=== PATIENT | male | born 1935 | race Caucasian/White ===

== ENCOUNTER 2016-09-14 21:05 | Inpatient (IN) | payer MEDICARE, BC ==
[2016-09-14 21:30] LABS: HEMATOCRIT 38.7 % (42.0-52.0); HEMOGLOBIN 12.3 gm/dl (14.0-18.0); MEAN CELL VOLUME 90.8 fl (81-97); MEAN CORPUSCULAR HGB CONC 31.8 g/dl (32-36); MEAN PLATELET VOLUME 10.5 fl (7.4-10.4); PLATELET COUNT 216 K/uL (130-400); RED BLOOD COUNT 4.26 M/uL (4.40-5.70); RED CELL DISTRIBUTION WIDTH 14.4 % (11.5-14.5); WHITE BLOOD COUNT W/O DIFF 12.8 K/uL (4.2-12.2)
[2016-09-14 21:31] LABS: MEAN CORPUSCULAR HEMOGLOBIN 28.8 pg (27-33)
[2016-09-14 21:42] LABS: ALB/GLOB RATIO 1.3 (1.1-1.8); ALBUMIN 3.4 gm/dL (3.5-5.0); BILIRUBIN,TOTAL 0.72 mg/dL (0.2-1.3); CREATININE 1.7 mg/dL (0.66-1.25); TOTAL PROTEIN 6.1 gm/dL (6.3-8.2)
[2016-09-14 21:53] LABS: CKMB 1.5 ug/L (0-6); TROPONIN I 0.036 ng/mL (0.00-0.034)
[2016-09-14] MEDS ORDERED: ASPIRIN 81 MG CHEWABLE TABLET PO ONE (21:53)
[2016-09-14] MEDS ORDERED: ACETAMINOPHEN 325 MG TAB PO ONE (22:12)
[2016-09-14 22:20] LABS: URINE APPEARANCE CLEAR; URINE BILIRUBIN NEGATIVE (NEGATIVE); URINE BLOOD NEGATIVE (NEGATIVE); URINE COLOR YELLOW; URINE GLUCOSE (UA) NEGATIVE (NEGATIVE); URINE KETONE TRACE (NEGATIVE); URINE LEUKOCYTE ESTERASE NEGATIVE (NEGATIVE); URINE NITRITE POSITIVE (NEGATIVE); URINE PROTEIN NEGATIVE (NEGATIVE); URINE UROBILINOGEN 0.2 E.U./dL (0.20 - 1.00)
[2016-09-14 22:26] LABS: URINE EPITHELIAL CELLS 0 - 2 (FEW); URINE RBC 0 - 2 (NONE SEEN)
[2016-09-14 22:27] LABS: URINE BACTERIA 3+
[2016-09-14] MEDS ORDERED: CEFTRIAXONE 1 GRAM VIAL IM ONE (23:18)
[2016-09-14] MEDS ORDERED: AZITHROMYCIN 500 MG TABLET PO ONE (23:23)
--- NOTE | 2016-09-14 23:24 | Emergency Department Record ---
History of Present Illness - General Chief Complaint: Chest Pain Stated Complaint: CHEST PAIN Time Seen by Provider: 09/14/16 21:42 Source: Patient, Family, EMS Mode of Arrival: EMS Limitations: No limitations - History of Present Illness Initial Comments: pt started having chest pain at 1840 and told his son he was having a heart attack. it got better then got worse again at 2019 and he was brought here. he currently denies any chest pain. he has a cough. MD Complaint: Chest pain Onset/Timin -: Hour(s) Onset: During rest Pain Location: Substernal Consistency: Now resolved Improves With: Nothing Worsens With: Nothing Anginal Symptoms: Dyspnea Other Symptoms: Cough, Fever Treatments Prior to Arrival: None - Related Data Home Medications Medication Instructions Recorded Confirmed Last Taken Albuterol Sulfate [Proair Hfa] 1 - 2 puff IH .EVERY 4-6 HOURS PRN 11/25/1409/1410/11/15 Amlodipine Besylate [Norvasc] 5 mg PO DAILY 11/25/14 09/14/16 10/12/15 Aspirin [Aspirin EC] 81 mg PO DAILY 11/25/14 09/14/16 10/12/15 Brimonidine Tartrate [Alphagan P] 5 ml OP BID 11/25/14 09/14/16 10/12/15 Cilostazol [Pletal] 50 mg PO BID 11/25/14 09/14/16 10/12/15 Docusate Sodium [Colace] 100 mg PO BID 11/25/14 09/14/16 10/12/15 Dorzolamide HCl/Timolol Maleat 5 ml OP BID 11/25/14 09/14/16 10/12/15 [Cosopt Eye Drops] Doxazosin Mesylate [Cardura] 4 mg PO DAILY 11/25/14 09/14/16 10/11/15 Ezetimibe [Zetia] 10 mg PO DAILY 11/25/14 09/14/16 10/12/15 Latanoprost [Xalatan] 1 drop OP QHS 11/25/14 09/14/16 10/11/15 Mirtazapine 15 mg PO QHS 11/25/14 09/14/16 10/11/15 Furosemide [Lasix] 20 mg PO QAM 03/04/15 09/14/16 10/12/15 Metoprolol Tartrate [Lopressor] 12.5 mg PO Q12H 06/30/15 09/14/16 10/12/15 Temazepam [Restoril] 7.5 mg PO QHS 06/30/15 09/14/16 10/11/15 Acetaminophen [Tylenol 500Mg Tab] 500 mg PO QHS 10/12/15 09/14/16 10/11/15 Tramadol HCl 50 mg PO QHS 10/12/15 09/14/16 10/11/15 Pantoprazole Sodium [Protonix] 40 mg PO DAILY 09/13/16 09/14/16 Unknown Polyethylene Glycol 3350 [Miralax] 17 gm PO DAILY 09/13/16 09/14/16 Unknown Tramadol HCl [Tramadol HCl] 50 mg PO QID PRN 09/13/16 09/14/16 Unknown Allergies Allergy/AdvReac Type Severity Reaction Status Date / Time acetazolamide Allergy Severe BEHAVIORAL Verified 09/14/16 23:20 [From Diamox Sequels] CHANGES atenolol [From Tenormin] Allergy Severe BEHAVIORAL Verified 09/14/16 23:20 CHANGES hydrocodone bitartrate Allergy Severe BEHAVIORAL Verified 09/14/16 23:20 CHANGES quetiapine fumarate Allergy Severe BEHAVIORAL Verified 09/14/16 23:20 [From Seroquel] CHANGES fluticasone propionate Allergy Intermediate HYPERSENSIT Verified 09/14/16 23:20 [From Flonase] IVITY rofecoxib Allergy Intermediate HYPERSENSIT Verified 09/14/16 23:20 IVITY Travel Screening - Travel/Exposure Within Last 30 Days Have you traveled within the last 30 days?: No Review of Systems Reviewed: No additional complaints except as noted below Constitutional: Reports: As per HPI. Denies: Chills, Fever, Malaise, Night sweats, Weakness, Weight change Eyes: Reports: As per HPI. Denies: Eye discharge, Eye pain, Photophobia, Vision change ENT: Reports: As per HPI. Denies: Congestion, Dental pain, Ear pain, Epistaxis , Hearing loss, Throat pain Respiratory: Reports: As per HPI. Denies: Cough, Dyspnea, Hemoptysis, Stridor, Wheezes Cardiovascular: Reports: As per HPI. Denies: Arrhythmia, Chest pain, Dyspnea on exertion, Edema, Murmurs, Orthopnea, Palpitations, Paroxysmal nocturnal dyspnea, Rheumatic Fever, Syncope Endocrine: Reports: As per HPI. Denies: Fatigue, Heat or cold intolerance, Polydipsia, Polyuria Gastrointestinal: Reports: As per HPI. Denies: Abdominal pain, Constipation, Diarrhea, Hematemesis, Hematochezia, Melena, Nausea, Vomiting Genitourinary: Reports: As per HPI. Denies: Dysuria, Frequency, Hematuria, Incontinence, Retention, Testicular pain, Testicular mass, Urgency Musculoskeletal: Reports: As per HPI. Denies: Arthralgia, Back pain, Gout, Joint swelling, Myalgia, Neck pain Skin: Reports: As per HPI. Denies: Bruising, Change in color, Change in hair/ nails, Lesions, Pruritus, Rash Neurological: Reports: As per HPI. Denies: Abnormal gait, Confusion, Headache, Numbness, Paresthesias, Seizure, Tingling, Tremors, Vertigo, Weakness Psychiatric: Reports: As per HPI. Denies: Anxiety, Auditory hallucinations, Depression, Homicidal thoughts, Suicidal thoughts, Visual hallucinations Hematological/Lymphatic: Reports: As per HPI. Denies: Anemia, Blood Clots, Easy bleeding, Easy bruising, Swollen glands Past Medical History - SOCIAL HISTORY Smoking Status: Never smoker Alcohol Use: None Drug Use: None - RESPIRATORY Hx Respiratory Disorders: No Comment:: wheezes - CARDIOVASCULAR Hx Cardio Disorders: Yes Hx Abnormal EKG: Yes Hx Cardiac Cath: Yes Hx Heart Attack: Yes Hx Hypertension: Yes - NEURO Hx Neuro Disorders: No - GI Hx GI Disorders: Yes Hx Diverticulitis: Yes Hx Reflux: Yes Comment:: colitis - Hx Genitourinary Disorders: Yes Hx Prostate Problems: Yes Comment:: prostate CA - ENDOCRINE Hx Endocrine Disorders: No Hx Diabetes: No Hx Thyroid Disease: No - MUSCULOSKELETAL Hx Musculoskeletal Disorders: Yes Hx Arthritis: Yes Comment:: mult back surg - PSYCH Hx Psych Problems: No - HEMATOLOGY/ONCOLOGY Hx Hematology/Oncology Disorders: Yes Hx Cancer: Yes (prostate) Hx Chemotherapy: No Hx Radiation Therapy: No Family Medical History Any Significant Family History?: Yes Hx Cancer: Father Hx Heart Disease: Mother Hx Stroke: Grandparents Physical Exam - General General Appearance: Alert, Oriented x3, Cooperative, Mild distress - Head Head exam: Normal inspection - Eye Eye exam: Normal appearance, PERRL, EOMI Pupils: Normal accommodation - ENT ENT exam: Normal exam, Mucous membranes moist, Normal external ear exam, Normal orophraynx Ear exam: Normal external inspection. negative: External canal tenderness Nasal Exam: Normal inspection. negative: Discharge, Sinus tenderness Mouth exam: Normal external inspection, Tongue normal Teeth exam: Normal inspection. negative: Dental caries Throat exam: Normal inspection. negative: Tonsillar erythema, Tonsillar exudate - Neck Neck exam: Normal inspection, Full ROM. negative: Tenderness - Respiratory Respiratory exam: Decreased breath sounds, Rales. negative: Respiratory distress - Cardiovascular Cardiovascular Exam: Regular rate, Normal rhythm, Systolic murmur - GI/Abdominal GI/Abdominal exam: Soft, Normal bowel sounds. negative: Tenderness - Rectal Rectal exam: Deferred - exam: Deferred - Extremities Extremities exam: Normal inspection, Full ROM, Normal capillary refill. negative: Tenderness - Back Back exam: Reports: Normal inspection, Full ROM. 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 ADM/Transfer/OP Study) - Data Complexity MDM Data: Labs Ordered and/or Reviewed, X-Ray Ordered and/or Reviewed, EKG Ordered and/or Reviewed - Lab Data Result diagrams: 09/14/16 21:20 09/14/16 21:20 Lab Results 09/14/16 09/14/16 09/14/16 Range/Units 21:20 21:20 21:20 WBC 12.8 H (4.2-12.2) K/uL Corrected WBC RBC 4.26 L (4.40-5.70) M/uL Hgb 12.3 L (14.0-18.0) gm/dl Hct 38.7 L (42.0-52.0) % MCV 90.8 (81-97) fl MCH 28.8 (27-33) pg MCHC 31.8 L (32-36) g/dl RDW 14.4 (11.5-14.5) % Plt Count 216 (130-400) K/uL MPV 10.5 H (7.4-10.4) fl Gran % Neutrophils % 66.0 (47-80) % Band Neutrophils % 0.0 (0-5) % Lymphocytes % 12.0 L (16-45) % Monocytes % 20.0 H (0-9) % Eosinophils % 2.0 (0-6) % Basophils % 0.0 (0-6) % Sodium 137 (136-145) mmol/L Potassium 4.1 (3.5-5.1) mmol/L Chloride 98 (98-107) mmol/L Carbon Dioxide 30.0 (22-30) mmol/L Anion Gap 9.0 (7-16) BUN 27 H (9-20) mg/dL Creatinine 1.7 H (0.66-1.25) mg/dL Estimated GFR 41 ml/min Random Glucose 112 H (70-110) mg/dL Calcium 8.8 (8.5-10.1) mg/dL Total Bilirubin 0.72 (0.2-1.3) mg/dL AST 25 (17-59) U/L ALT 44 (21-72) U/L Alkaline Phosphatase 78 (38-126) U/L Creatine Kinase 61 (55-170) U/L CK-MB (CK-2) 1.5 (0-6) ug/L Troponin I 0.036 H (0.00-0.034) ng/mL NT-Pro-B Natriuret Pep (<450) pg/mL Total Protein 6.1 L (6.3-8.2) gm/dL Albumin 3.4 L (3.5-5.0) gm/dL Globulin 2.7 (1.4-4.8) gm/dL Albumin/Globulin Ratio 1.3 (1.1-1.8) Urine Color Urine Appearance Urine pH (5.0-8.0) Ur Specific [place] (1.002-1.030) Urine Protein (NEGATIVE) Urine Glucose (UA) (NEGATIVE) Urine Ketones (NEGATIVE) Urine Blood (NEGATIVE) Urine Nitrite (NEGATIVE) Urine Bilirubin (NEGATIVE) Urine Urobilinogen (0.20 - 1.00) E.U./dL Ur Leukocyte Esterase (NEGATIVE) Urine RBC (NONE SEEN) Urine WBC (0-2/hpf) Ur Epithelial Cells (FEW) Urine Bacteria 09/14/16 09/14/16 09/14/16 Range/Units 21:20 21:53 22:17 WBC Cancelled (4.2-12.2) K/uL Corrected WBC Cancelled RBC Cancelled (4.40-5.70) M/uL Hgb Cancelled (14.0-18.0) gm/dl Hct Cancelled (42.0-52.0) % MCV Cancelled (81-97) fl MCH Cancelled (27-33) pg MCHC Cancelled (32-36) g/dl RDW Cancelled (11.5-14.5) % Plt Count Cancelled (130-400) K/uL MPV Cancelled (7.4-10.4) fl Gran % Cancelled Neutrophils % (47-80) % Band Neutrophils % (0-5) % Lymphocytes % Cancelled (16-45) % Monocytes % Cancelled (0-9) % Eosinophils % Cancelled (0-6) % Basophils % Cancelled (0-6) % Sodium Cancelled (136-145) mmol/L Potassium Cancelled (3.5-5.1) mmol/L Chloride Cancelled (98-107) mmol/L Carbon Dioxide Cancelled (22-30) mmol/L Anion Gap Cancelled (7-16) BUN Cancelled (9-20) mg/dL Creatinine Cancelled (0.66-1.25) mg/dL Estimated GFR Cancelled ml/min Random Glucose Cancelled (70-110) mg/dL Calcium Cancelled (8.5-10.1) mg/dL Total Bilirubin (0.2-1.3) mg/dL AST (17-59) U/L ALT (21-72) U/L Alkaline Phosphatase (38-126) U/L Creatine Kinase (55-170) U/L CK-MB (CK-2) (0-6) ug/L Troponin I (0.00-0.034) ng/mL NT-Pro-B Natriuret Pep 1930.00 H (<450) pg/mL Total Protein (6.3-8.2) gm/dL Albumin (3.5-5.0) gm/dL Globulin (1.4-4.8) gm/dL Albumin/Globulin Ratio (1.1-1.8) Urine Color Yellow Urine Appearance Clear Urine pH 5.5 (5.0-8.0) Ur Specific [place] 1.020 (1.002-1.030) Urine Protein Negative (NEGATIVE) Urine Glucose (UA) Negative (NEGATIVE) Urine Ketones Trace H (NEGATIVE) Urine Blood Negative (NEGATIVE) Urine Nitrite Positive H (NEGATIVE) Urine Bilirubin Negative (NEGATIVE) Urine Urobilinogen 0.2 (0.20 - 1.00) E.U./dL Ur Leukocyte Esterase Negative (NEGATIVE) Urine RBC 0 - 2 (NONE SEEN) Urine WBC 10 - 15 (0-2/hpf) Ur Epithelial Cells 0 - 2 (FEW) Urine Bacteria 3+ - EKG Data -: EKG Interpreted by Ms EKG: Abnormal EKG (pvcs) - Radiology Data Radiology results: Report reviewed, Image reviewed Disposition Disposition: Admit Clinical Impression: Pneumonia Qualifiers: Pneumonia type: due to unspecified organism Laterality: right Lung location: lower lobe of lung Qualified Code(s): J18.1 - Lobar pneumonia, unspecified organism UTI (urinary tract infection) Qualifiers: Urinary tract infection type: acute cystitis Hematuria presence: without hematuria Qualified Code(s): N30.00 - Acute cystitis without hematuria Chest pain Qualifiers: Chest pain type: unspecified Qualified Code(s): R07.9 - Chest pain, unspecified Decision to Admit: Admit from ER Decision to Admit Date: 09/14/16 Decision to Admit Time: 23:38 Forms: Patient Portal Access
[2016-09-14] MEDS ORDERED: CEFTRIAXONE SODIUM 1 GM in 0.9 % SODIUM CHLORIDE 100ML 100 ML IVPB ONE (23:30)
[2016-09-15] MEDS ORDERED: ALBUTEROL HFA 8 GM INHALER INH PRN (00:30)
[2016-09-15] MEDS ORDERED: TRAMADOL HCL 50 MG TABLET PO PRN ×2 (00:30→00:36)
[2016-09-15] MEDS ORDERED: NITROGLYCERIN 0.4MG SL TABLET #25 BTL SL PRN (00:30)
[2016-09-15] MEDS ORDERED: ACETAMINOPHEN 500 MG TABLET PO PRN (00:30)
[2016-09-15] MEDS ORDERED: CEFTRIAXONE SODIUM 1 GM in 0.9 % SODIUM CHLORIDE 100ML 100 ML IVPB SCH (00:30)
[2016-09-15] MEDS ORDERED: METOPROLOL TART 25 MG TABLET PO SCH (00:30)
[2016-09-15 06:58] LABS: CREATININE 1.7 mg/dL (0.66-1.25)
[2016-09-15] MEDS ORDERED: PANTOPRAZOLE SODIUM 40 MG TABLET PO SCH ×2 (07:00→10:00)
[2016-09-15 07:10] LABS: CKMB 1.4 ug/L (0-6); TROPONIN I 0.057 ng/mL (0.00-0.034)
--- NOTE | 2016-09-15 07:27 | RADIOLOGY REPORT ---
EXAM: CHEST, TWO VIEWS HISTORY: DIFFICULTY IN BREATHING. TECHNIQUE: Frontal and lateral views of the chest were performed. FINDINGS: The heart size is normal. There is an infiltrate in the right lower lobe. No pleural effusion. The osseous structures are normal. IMPRESSION: RIGHT LOWER LOBE INFILTRATE. JOB NUMBER: [id number] MTDD
[2016-09-15] MEDS: METOPROLOL TART 25 MG TABLET PO SCH ×2 (10:46→20:30)
[2016-09-15] MEDS: DOXAZOSIN MESYLATE 2 MG TABLET PO SCH (10:47)
[2016-09-15] MEDS: DOCUSATE SODIUM 100 MG CAPSULE PO SCH ×3 (10:47→21:04)
[2016-09-15] MEDS: ASPIRIN 325 MG TAB ENTERIC-COATED PO SCH (10:48)
[2016-09-15] MEDS: FUROSEMIDE 20 MG TABLET PO SCH (10:48)
[2016-09-15] MEDS: AMLODIPINE BESYLATE 5MG TAB PO SCH (10:49)
[2016-09-15] MEDS: POLYETHYLENE GLY 17 GM PACKET PO SCH (10:49)
[2016-09-15] MEDS: CILOSTAZOL 50 MG PO SCH ×3 (10:50→21:05)
[2016-09-15] MEDS: BRIMONIDINE OPTH SCH ×3 (10:50→21:05)
[2016-09-15] MEDS: CEFTRIAXONE SODIUM 1 GM in 0.9 % SODIUM CHLORIDE 100ML 100 ML IVPB SCH ×2 (10:51→21:48)
[2016-09-15] MEDS: TIMOLOL EYE OPTH SCH ×3 (10:51→21:05)
[2016-09-15] MEDS: EZETIMIBE 10 MG TABLET PO SCH (10:51)
[2016-09-15] MEDS: DORZOLAMIDE OPTH SCH ×3 (10:51→21:05)
[2016-09-15] MEDS: AZITHROMYCIN 500 MG TABLET PO SCH (10:52)
[2016-09-15] MEDS ORDERED: 0.9 % SODIUM CHLORIDE 1000ML 1,000 ML IV ONE (13:29)
[2016-09-15 14:24] LABS: CKMB 1.1 ug/L (0-6)
[2016-09-15 14:27] LABS: TROPONIN I 0.038 ng/mL (0.00-0.034)
[2016-09-15] MEDS: ENOXAPARIN 30 MG/0.3 ML SYR SQ SCH (15:15)
--- NOTE | 2016-09-15 15:22 | History and Physical Report ---
DATE OF ADMISSION: 09/15/16 at 12:45 p.m. CHIEF COMPLAINT: COUGH, CONGESTION, WHEEZING, AND CHEST PAIN AT [facility]. HISTORY OF PRESENT ILLNESS: This 81-year-old male who has been at [facility] for five years with dementia starting about that time stated he had chest pain, thought he was having a heart attack. The staff called the ambulance and sent him to the Emergency Department for evaluation. Upon arrival to the E.R., he denied any chest pain or shortness of breath, however, he was short of breath objective-ace and he was coughing. He had a fever. Chest x-ray revealed right lower lobe infiltrate. The patient was admitted to the hospital with IV antibiotics. The troponin was slightly in the indeterminate range. The second troponin was also indeterminate, slightly higher. CK-MB was normal. EKG showing no acute changes with PVCs. Normal sinus rhythm. The chest x-ray showed the infiltrate. PAST MEDICAL HISTORY: Dementia for five years since at [facility]. Peripheral artery disease. Hypertension. Chronic back pain. Hyperlipidemia. GERD. Coronary artery disease with coronary artery bypass grafting x2 in 1999. An PA in 1993. Primary medical caregiver is Dr. Medina in [place]. He also has prostatic cancer with the prostate removed. He had a feeding tube when he was in [facility] on 05/2015 with sepsis. PAST SURGICAL HISTORY: As stated, coronary artery bypass grafting x2 in 1999. Hernia surgery. Prostate removal. Feeding tube. MEDICATIONS ON ADMISSION: Amlodipine 5 mg daily Aspirin 81 mg daily Brimonidine 0.15% one drop b.i.d. both eyes Pletal 50 mg twice a day Dulcolax 100 mg b.i.d. Dorzol/Timolol Solution one drop both eyes every 12 hours Doxazosin 4 mg at bedtime Lasix 20 mg daily I-Vipul one tablet b.i.d. Latanoprost Solution 0.005% one drop both eyes at bedtime Tramadol one tablet at bedtime Metoprolol Tartrate 25 mg one-half tablet b.i.d. Remeron 15 mg at bedtime Protonix 40 mg daily MiraLAX 17 gm daily Mucinex 600 mg b.i.d. Restoril 7.5 mg at h.s. Vitamin D 50,000 units once a week Zetia 10 mg daily Tessalon Perles 100 mg every six hours prn Ibuprofen 400 mg t.i.d. prn Ketoconazole cream to the groin 2%, apply as needed prn Imodium 2 mg t.i.d. prn diarrhea Tylenol 500 mg three times a day prn pain Tramadol one to two tablets four times a day as needed for pain Ventolin inhaler two puffs every four hours prn ALLERGIES: ATENOLOL. ACETAZOLAMIDE. HYDROCODONE. SEROQUEL. FLONASE. ROFECOXIB. FAMILY/PSYCHOSOCIAL HISTORY: Brother on a ventilator. REVIEW OF SYSTEMS: HEENT: Has congestion and cough the last two to three days with wheezing. CARDIOVASCULAR: He did have some intermittent chest pain mostly with coughing it sounds like. He has had coronary artery disease in the past. RESPIRATORY: Cough. Congestion. Short of breath. GASTROINTESTINAL: No nausea, vomiting, diarrhea, or black stools. GENITOURINARY: No dysuria, hematuria, frequency, or burning on urination. He is not circumcised so the urine may be contaminated. MUSCULOSKELETAL: He normally sits in a wheelchair that he is able to stand and pivot with two people assisting. This is his normal baseline but he is much weaker now according to the son, Kerwin. NEUROLOGIC: He has dementia for the five years. He has a little bit of a shake, tremor. No seizures. ENDOCRINE: No diabetes or thyroid disease. INTEGUMENT: No rash, ulcer , changes in moles or yellow skin. PHYSICAL EXAMINATION: GENERAL: Height is 5'8". Weight is 180 lb. VITAL SIGNS: Temperature is 97.5. Pulse is 92. Blood pressure is 153/64. Respiratory rate is 16. Pulse ox is 97% on room air. His temperature in the Emergency Department was 100.9. HEENT: Pupils equal, round, and reactive to light and accommodation. Extraocular muscles are intact. Throat is clear. Nose is clear. Tympanic membranes are falk. There is posterior nasal drainage. NECK: Neck is supple. No jugular venous distention. No hepatojugular reflux. No carotid bruits. Thyroid smooth. CARDIOVASCULAR: Regular rate and rhythm without murmurs, clicks, rubs, or gallops. RESPIRATORY: He has wheezing heard in the right lower lobe. ABDOMEN: Soft, nontender. No hepatosplenomegaly. No masses. No tenderness. Bowel sounds active. No bruits. EXTREMITIES: No pitting edema. No cyanosis. No clubbing. Full range of motion. Peripheral pulses are good but he is too weak to stand by himself. He has to have two people assisting. BREASTS: Normal male breasts. RECTAL: Deferred. GENITALIA: He is not circumcised. No hernia is seen. NEUROLOGICAL EXAM: Cranial nerves II through XII are intact. No gross abnormality, sensation, deep tendon reflexes equal bilaterally. Babinski is negative. MENTAL STATUS: He is alert but disoriented to time and place but not person. He has had dementia for five years. IMPRESSION: 1. RIGHT LOWER LOBE PNEUMONIA. 2. ELEVATED TROPONIN-Is IN THE INDETERMINATE X2. 3. DEMENTIA FOR FIVE YEARS. 4. PERIPHERAL ARTERY DISEASE. 5. HYPERTENSION. 6. HYPERLIPIDEMIA. 7. GERD. 8. CORONARY ARTERY DISEASE. 9. PROSTATE CANCER WITH A PROSTATE REMOVAL. 10. CHRONIC BACK PAIN. 11. STATUS POST HERNIA SURGERY. PLAN: IV Rocephin 1 gm every 12 hours. Azithromycin 500 mg every day. Ventolin two puffs every four hours prn; may have to switch over to a breathing treatment, oxygen therapy. Cautious hydration. Yasir Avila D.O. Date & Time JOB NUMBER: [id number] MTDD
--- NOTE | 2016-09-15 17:09 | Rehab Evaluation ---
Patient Information - Patient Information Diagnosis: pneumonia, dementia, UTI Ordered Treatment: PT Evaluate and Treat Status: Initial Evaluation History: Detail (The patient presented in ER on 09/14/16 with complaints of chest pain.) Past Medical/Surgical Hx: PAST MEDICAL/SURGICAL HISTORY Past Surgical History back surgery x3 hernia open heart cardiac stents prostate left knee replacement shoulder PMH - Respiratory Hx Respiratory Disorders No Hx Asthma Yes: uses inhaler Hx Pneumonia Yes Comment: wheezes PMH - Cardiovascular Hx Cardiovascular Disorders Yes Hx Abnormal EKG Yes Hx Cardiac Catheterization Yes Hx Heart Attack Yes Hx Hypertension Yes PMH - Neuro Hx Neurological Disorders Yes Hx Dementia Yes PMH - GI Hx Gastrointestinal Disorders Yes Hx Diverticulitis Yes Hx Gastroesophageal Reflux Yes Comment: colitis PMH - Hx Genitourinary Disorders Yes Hx Prostate Problems Yes Comment: prostate CA PMH - Endocrine Hx Endocrine Disorders No Hx Diabetes No Hx Thyroid Disease No PMH - Musculoskeletal Hx Musculoskeletal Disorders Yes Hx Arthritis Yes Comment: mult back surg PMH - Psych Hx Psychiatric Problems Yes Hx Depression Yes PMH - Hematology/Oncology Hx Hematology/Oncology Yes Disorders Hx Cancer Yes: prostate Hx Chemotherapy No Hx Radiation Therapy No Premorbid Status: Detail (The patient is a resident at an assisted living facility. According to the patient's son the patient was primarily in a wheelchair and was completing a pivot transfer with 2 person assist.) Social History: Detail (The patient is a resident of an assisted living facility.) Precautions: [place], Fall - Time With Patient Total Time Spent With Patient (Min): 30 Treatment Procedures: Detail (Initial Evaluation) Subjective Information - Subjective Information Per Patient (The patient denied pain .) Objective Data - Mental Status Patient Orientation: Person, Place (The patient was aware he was in the hospital and knew he had pneumonia. The patient knew his age and month of and the current year. The patient became agitated with orientation questions. " Why are you asking me all these stupid questions." The patient followed simple commands.) - ROM Not within normal limits (UE: Limited bilateral shoulder flexion and abduction to aprox. 90 degrees. LE AROM is WFL.) - Strength/Tone Not within normal limits (The patient's UE strength was generally 4- to 4/5. The patient's LE strength was generally 4 to 4-/5.) - Bed Mobility Needs Assist (The patient completed supine to sit transfer with minimal/ assist with upper body and independent with moving LE's, with sit to supine transfer the patient was independent with upper body and moderate PA to lift LE's. The patient scooted to straighten out body independently.) - Transfers Needs Assist (Sit to and from stand transfer moderate PA of 2.) - Balance Balance Sitting: Poor (The patient required support of R UE to maintain his balance. Patient leaned to R side.) Balance Standing: Poor (The patient stood to walker with increased trunk ,hip and knee flexion.) - Gait Detail (The patient stood to walker x 20 to 30 seconds then refused further activity.) Therapy Assessment - Therapy Assessment Detail (The patient requires minimal assist with bed mobility and moderate PA of 2 to stand. The patient overall has decreased ability to complete prolonged physical activity. Ongoing PT is recommended when discharged from PT to return to previous functional level.) Problem List - Problem List Physical Therapy Problem List: Detail (1) Decreased sitting and standing balance 2) Moderate PA of 2 with transfers and minimal PA with bed mobility 3) Decreased tolerance for sustained physical activity 4) Decreased bilateral UE AROM .) Goals - Goals Physical Therapy Goals: 1) The patient will acheive sit to stand and pivot transfer with minimal PA of 1 to 2. 2) Independent/supervision with wheelchair mobility 100 feet plus. 3) Supervision to independent with bed mobility. 4) Improve sitting balance to Fair level (sitting without support). Prognosis - Prognosis Moderate Plan - Plan Physical Therapy Plan: PT once daily for bed mobility, transfer training, wheelchair mobility and sitting balance exercises.
[2016-09-15] MEDS: ACETAMINOPHEN 500 MG TABLET PO SCH ×2 (20:31→21:07)
[2016-09-15] MEDS: MIRTAZAPINE 15 MG TABLET PO SCH ×2 (20:32→21:06)
[2016-09-15] MEDS: TEMAZEPAM 7.5 MG PO SCH ×2 (20:34→21:05)
[2016-09-15] MEDS: LATANOPROST 0.005% OPTH SOLUTION 2.5ML BOTTLE OPTH SCH ×2 (20:35→21:06)
[2016-09-15] MEDS ORDERED: ZINC OXIDE 28.35 GM TUBE TOP PRN (20:44)
[2016-09-15] MEDS ORDERED: MIRTAZAPINE 15 MG PO SCH (22:00)
[2016-09-16] MEDS: PANTOPRAZOLE SODIUM 40 MG TABLET PO SCH ×2 (05:51→06:58)
[2016-09-16] MEDS: METOPROLOL TART 25 MG TABLET PO SCH ×2 (09:28→22:17)
[2016-09-16] MEDS: DOXAZOSIN MESYLATE 2 MG TABLET PO SCH (09:29)
[2016-09-16] MEDS: FUROSEMIDE 20 MG TABLET PO SCH (09:30)
[2016-09-16] MEDS: ASPIRIN 325 MG TAB ENTERIC-COATED PO SCH (09:30)
[2016-09-16] MEDS: DOCUSATE SODIUM 100 MG CAPSULE PO SCH ×2 (09:30→22:18)
[2016-09-16] MEDS: ENOXAPARIN 30 MG/0.3 ML SYR SQ SCH (09:32)
[2016-09-16] MEDS: POLYETHYLENE GLY 17 GM PACKET PO SCH (09:32)
[2016-09-16] MEDS: BRIMONIDINE OPTH SCH ×2 (09:33→22:21)
[2016-09-16] MEDS: AMLODIPINE BESYLATE 5MG TAB PO SCH (09:33)
[2016-09-16] MEDS: AZITHROMYCIN 500 MG TABLET PO SCH (09:34)
[2016-09-16] MEDS: CILOSTAZOL 50 MG PO SCH ×2 (09:34→22:21)
[2016-09-16] MEDS: DORZOLAMIDE OPTH SCH ×2 (09:34→22:22)
[2016-09-16] MEDS: EZETIMIBE 10 MG TABLET PO SCH (09:34)
[2016-09-16] MEDS: TIMOLOL EYE OPTH SCH ×2 (09:34→22:22)
[2016-09-16] MEDS: CEFTRIAXONE SODIUM 1 GM in 0.9 % SODIUM CHLORIDE 100ML 100 ML IVPB SCH ×2 (09:34→22:21)
--- NOTE | 2016-09-16 11:59 | Physical Therapy Tx Note ---
Physical Therapy Tx Note - Treatment Note Tolerated: Fair Total Time Spent With Patient: 20 Physical Therapy Tx Note: Detail (The patient was in bed when PT arrived and was easily roused. The patient required moderate PA of 1 with supine to and from sit transfer . The patient continues to lean heavily toward the R and was able to inconsistently sit upright when cued. The patient acheived sit to stand to wheeled walker with moderate PA of 2. The patient ambulated a few steps to chair with moderate PA of 1 and use of wheeled walker. The patient continues to be in a flexed position in hip and knee flexion and trunk flexion. The patient completed LE exercises including : hip marching, LAQ, toe tapping and adductor squeezes. The patient required verbal cues to slow down when completing exercises. The patient appeared more alert and oriented this am.) Physical Therapy Problem List: Detail (1) Decreased sitting and standing balance 2) Moderate PA of 2 with transfers and minimal PA with bed mobility 3) Decreased tolerance for sustained physical activity 4) Decreased bilateral UE AROM .) Physical Therapy Goals: 1) The patient will acheive sit to stand and pivot transfer with minimal PA of 1 to 2. 2) Independent/supervision with wheelchair mobility 100 feet plus. 3) Supervision to independent with bed mobility. 4) Improve sitting balance to Fair level (sitting without support). Physical Therapy Plan: PT once daily for bed mobility, transfer training, wheelchair mobility and sitting balance exercises.
--- NOTE | 2016-09-16 14:17 | Medical Records Consult ---
CONSULTATION DATE: 09/15/2016. REFERRING PHYSICIAN: Yasir Avila D.O. CONSULTING PHYSICIAN: Panchito Lucero M.D. REASON FOR CONSULTATION: Chest pain and elevated cardiac biomarkers. HISTORY OF PRESENTING ILLNESS: Mr. Bates is an 81-year-old gentleman who is a resident of [facility] and has a history of dementia. He also has a history of coronary artery disease and is status post coronary artery bypass grafting surgery [place] [address] Esteban Solano. He presented to the emergency department with complaints of chest pain, and he was found to have leukocytosis as well as fevers. A chest x-ray showed infiltrates and he is being treated for pneumonia. The patient had a mildly elevated troponin which led to a cardiology consultation. The patient is currently chest pain free and his shortness of breath has improved as well. He denies any pedal edema, orthopnea, or paroxysmal nocturnal dyspnea. An echocardiogram performed today shows an ejection fraction of 45 to 50% with global hypokinesis. He also has mild to moderate aortic valve stenosis. MEDICATIONS: His home medications include: Aspirin 81 mg daily, cilostazol 50 mg b.i.d., doxazosin 4.0 mg daily, Lasix 20 mg one-half tablet daily, mirtazapine 30 mg daily, Norvasc 5.0 mg daily, omeprazole 20 mg daily, pilocarpine 5.0 mg t.i.d., Restoril 7.5 mg one capsule daily, Tylenol extra strength as needed, Ventolin inhaler, Xalatan, Zetia 10 mg mg daily. PAST MEDICAL HISTORY: Is significant for hypertension, coronary artery disease , and peripheral vascular disease. REVIEW OF SYSTEMS: The patient denies any fevers or chills prior to his presentation. He complains of chest pain as explained in the history of present illness. However, currently he is chest pain free. He denies any abdominal pain. No history of anxiety or depression. However, the patient is by himself in the room and has a history of dementia. LABORATORY DATA: His laboratory data showed an initial troponin of 0.036 and a second one of 0.057. His BUN was 26 and creatinine was 1.7 with a GFR of 41. Sodium was 139, potassium was 4.0. AST was 25, ALT was 44. CPK was 61, CKMB was 1.5. N-terminal pro-BNP was 1930. White count was elevated at 12.8. Hemoglobin was 12.3. Platelet count was 216. DIAGNOSTIC DATA: The patient's chest x-ray was reported to show a right lower lobe infiltrate as well. PHYSICAL EXAMINATION: General: On physical examination the patient is sitting up and appears to be alert and oriented. He is pleasant during the examination. HEENT: On examination he is normocephalic, atraumatic. The pupils are equal and reactive to light. The extraocular muscles are intact. Neck: The neck is supple. Cardiovascular: On cardiovascular examination he has a grade III/XI systolic ejection murmur radiating to both of the carotids. There is no pedal edema and no jugular venous distension. Respiratory: Examination reveals that the lungs have scattered bilateral crackles. Neurological: Examination is nonfocal. ASSESSMENT AND PLAN: 1. Elevated cardiac biomarkers. The patient's elevated troponin is because of the pneumonia as well as the renal insufficiency. Given the patient's leukocytosis, fever, and the extra findings, I agree with management of the volume with aggressive antibiotic treatment. No need to keep the patient on anticoagulation with Heparin. 2. The patient does have a history of coronary artery disease, and will be continued on aspirin as well as the metoprolol that he is taking at 12.5 mg b.i.d. 3. The patient's blood pressure is adequately controlled with the current dose of metoprolol and Amlodipine. These will be continued. 4. The patient has mild to moderate aortic stenosis for which he will follow up with Dr. Stokes or with our cardiology clinic [place] as an outpatient. 5. Management of pneumonia as per Dr. Avila's recommendation. Thank you very much for involving us in the management of Mr. Bates. If you have any questions please do not hesitate to call me. Panchito Lucero M.D. Date Time JOB NUMBER: [id number] MTDD
[2016-09-16] MEDS: MIRTAZAPINE 15 MG TABLET PO SCH (22:15)
[2016-09-16] MEDS: ACETAMINOPHEN 500 MG TABLET PO SCH (22:19)
[2016-09-16] MEDS: TEMAZEPAM 7.5 MG PO SCH (22:22)
[2016-09-16] MEDS: LATANOPROST 0.005% OPTH SOLUTION 2.5ML BOTTLE OPTH SCH (23:04)
[2016-09-17] MEDS ORDERED: ALBUTEROL SULFATE (0.083%) 2.5 MG/3 ML NEB INH PRN (01:51)
[2016-09-17] MEDS: PANTOPRAZOLE SODIUM 40 MG TABLET PO SCH (06:38)
[2016-09-17] MEDS: METOPROLOL TART 25 MG TABLET PO SCH ×2 (09:23→22:07)
[2016-09-17] MEDS: DOCUSATE SODIUM 100 MG CAPSULE PO SCH ×2 (09:25→22:07)
[2016-09-17] MEDS: FUROSEMIDE 20 MG TABLET PO SCH (09:26)
[2016-09-17] MEDS: POLYETHYLENE GLY 17 GM PACKET PO SCH (09:26)
[2016-09-17] MEDS: ASPIRIN 325 MG TAB ENTERIC-COATED PO SCH (09:26)
[2016-09-17] MEDS: AZITHROMYCIN 500 MG TABLET PO SCH (09:27)
[2016-09-17] MEDS: EZETIMIBE 10 MG TABLET PO SCH (09:27)
[2016-09-17] MEDS: ENOXAPARIN 30 MG/0.3 ML SYR SQ SCH (09:29)
[2016-09-17] MEDS: CILOSTAZOL 50 MG PO SCH ×2 (09:45→22:14)
[2016-09-17] MEDS: BRIMONIDINE OPTH SCH ×2 (09:49→22:14)
[2016-09-17] MEDS: TIMOLOL EYE OPTH SCH ×2 (09:49→22:15)
[2016-09-17] MEDS: DORZOLAMIDE OPTH SCH ×2 (09:49→22:15)
[2016-09-17] MEDS: CEFTRIAXONE SODIUM 1 GM in 0.9 % SODIUM CHLORIDE 100ML 100 ML IVPB SCH ×2 (13:00→22:14)
[2016-09-17] MEDS: AMLODIPINE BESYLATE 5MG TAB PO SCH ×2 (13:04→22:06)
[2016-09-17] MEDS: DOXAZOSIN MESYLATE 2 MG TABLET PO SCH (13:04)
--- NOTE | 2016-09-17 18:47 | Physical Therapy Tx Note ---
Physical Therapy Tx Note - Treatment Note Tolerated: Fair Total Time Spent With Patient: 30 Physical Therapy Tx Note: Detail (Patient states no complaints of pain. Patient required coaxing to participate. Patient transferred supine to sit max assist x2. Patient performed the following exercises x10 reps each: LAQ, seated marching, ankle pumps, adductor squeezes, and shoulder flexion. Patient required mod verbal cueing to decrease speed of exercises. Patient required min -mod assist x1 with sitting balance during exercises. Patient transferred sit to and from stand with patient bracing LEs against bed, required mod assist x2. Patient transferred sit to supine max assist x2. Patient scooted up in bed heavy mod assist x2, patient assisted with pushing with LEs. Patient reports tired after treatment. Patient was left supine in bed with bed alarm on and call light within reach.) Physical Therapy Problem List: Detail (1) Decreased sitting and standing balance 2) Moderate PA of 2 with transfers and minimal PA with bed mobility 3) Decreased tolerance for sustained physical activity 4) Decreased bilateral UE AROM .) Physical Therapy Goals: 1) The patient will acheive sit to stand and pivot transfer with minimal PA of 1 to 2. 2) Independent/supervision with wheelchair mobility 100 feet plus. 3) Supervision to independent with bed mobility. 4) Improve sitting balance to Fair level (sitting without support). Prognosis: Good Physical Therapy Plan: PT once daily for bed mobility, transfer training, wheelchair mobility and sitting balance exercises.
[2016-09-17] MEDS: MIRTAZAPINE 15 MG TABLET PO SCH (22:06)
[2016-09-17] MEDS: ACETAMINOPHEN 500 MG TABLET PO SCH (22:06)
[2016-09-17] MEDS: LATANOPROST 0.005% OPTH SOLUTION 2.5ML BOTTLE OPTH SCH (22:15)
[2016-09-17] MEDS: TEMAZEPAM 7.5 MG PO SCH (22:15)
[2016-09-18] MEDS: PANTOPRAZOLE SODIUM 40 MG TABLET PO SCH (06:19)
[2016-09-18] MEDS ORDERED: LEVOFLOXACIN 500 MG TABLET PO SCH (07:00)
--- NOTE | 2016-09-18 07:07 | Discharge Note ---
Discharge Note - Date Date of Discharge Note: 09/18/16 Disposition: Longterm Care Facility Condition: (1) Good Additional Instructions: follow up with Dr. Medina in 10 days Prescriptions: Levofloxacin [Levaquin] 500 mg PO DAILYFLUOR #7 tablet Forms: Patient Portal Access
[2016-09-18 08:54] LABS: HEMATOCRIT 38.4 % (42.0-52.0); HEMOGLOBIN 11.9 gm/dl (14.0-18.0); MEAN CELL VOLUME 91.2 fl (81-97); MEAN PLATELET VOLUME 10.4 fl (7.4-10.4); PLATELET COUNT 206 K/uL (130-400); RED BLOOD COUNT 4.21 M/uL (4.40-5.70); RED CELL DISTRIBUTION WIDTH 14.4 % (11.5-14.5); WHITE BLOOD COUNT W/O DIFF 7.7 K/uL (4.2-12.2)
[2016-09-18 08:56] LABS: MEAN CORPUSCULAR HEMOGLOBIN 28.2 pg (27-33)
[2016-09-18 09:10] LABS: PLATELET ESTIMATE NORMAL (NORMAL)
--- NOTE | 2016-09-18 09:53 | Rehab Evaluation ---
Patient Information - Patient Information Diagnosis: pneumonia, dementia, UTI Ordered Treatment: OT Evaluate and Treat Status: Initial Evaluation Surgery: No History: Detail (The patient presented in ER on 09/14/16 with complaints of chest pain.) Past Medical/Surgical Hx: PAST MEDICAL/SURGICAL HISTORY Past Surgical History back surgery x3 hernia open heart cardiac stents prostate left knee replacement shoulder PMH - Respiratory Hx Respiratory Disorders No Hx Asthma Yes: uses inhaler Hx Pneumonia Yes Comment: wheezes PMH - Cardiovascular Hx Cardiovascular Disorders Yes Hx Abnormal EKG Yes Hx Cardiac Catheterization Yes Hx Heart Attack Yes Hx Hypertension Yes PMH - Neuro Hx Neurological Disorders Yes Hx Dementia Yes PMH - GI Hx Gastrointestinal Disorders Yes Hx Diverticulitis Yes Hx Gastroesophageal Reflux Yes Comment: colitis PMH - Hx Genitourinary Disorders Yes Hx Prostate Problems Yes Comment: prostate CA PMH - Endocrine Hx Endocrine Disorders No Hx Diabetes No Hx Thyroid Disease No PMH - Musculoskeletal Hx Musculoskeletal Disorders Yes Hx Arthritis Yes Comment: mult back surg PMH - Psych Hx Psychiatric Problems Yes Hx Depression Yes PMH - Hematology/Oncology Hx Hematology/Oncology Yes Disorders Hx Cancer Yes: prostate Hx Chemotherapy No Hx Radiation Therapy No Premorbid Status: Detail (The patient is a resident at an assisted living facility. According to the patient's son the patient was primarily in a wheelchair and was completing a pivot transfer with 2 person assist.) Social History: Detail (The patient is a resident of an assisted living facility.) Precautions: Chase, Fall - Time With Patient Total Time Spent With Patient (Min): 50 Treatment Procedures: Detail (OT eval-moderate complexity) Subjective Information - Subjective Information Per Patient Objective Data - Pain Pain Present: No - Mental Status Patient Orientation: Person, Place - Visual Perception Appears within normal limits for therapeutic activities (Pt wears glasses at all times.) - ROM Not within normal limits (Yaniv UE AROM limited at shoulder flexion although functional for his level of activity. Yaniv elbow AROM limited, wrist and hand AROM functional.) - Strength/Tone Not within normal limits (Yaniv UE MMT 4/5 throughout, within AROM limitations.) - Coordination Appears within normal limits for therapeutic activities - Bed Mobility Needs Assist (Supine to sit with mod assist x 1.) - Transfers Needs Assist (Sit to stand with walker and min assist x 1.) - Balance Balance Sitting: Fair Balance Standing: Poor - Sensation Intact - Gait Detail (Pt able to take several steps with 2 wheeled walker and min assist.) - ADL's/IADL's Detail (Pt requires assist for eating as he has difficuly bringing food to his mouth. He is able to wash his face after set up. Nursing is assisting with other ADLs.) Therapy Assessment - Therapy Assessment Detail (Pt presents with decreased Ind with self care activities although it is unclear what his prior functional status was, he demonstrates decreased UE function, decreased Ind with functional mobility and decreased cognition.) Problem List - Problem List Physical Therapy Problem List: Detail (1) Decreased sitting and standing balance 2) Moderate PA of 2 with transfers and minimal PA with bed mobility 3) Decreased tolerance for sustained physical activity 4) Decreased bilateral UE AROM .) Occupational Therapy Problem List: Detail (1. Decreased Ind with eating due to impaired UE ROM/strength. 2. Decreased Ind with functional mobility needed for safe and Ind self cares. 3. Decreased Ind with self care activities.) Goals - Goals Physical Therapy Goals: 1) The patient will acheive sit to stand and pivot transfer with minimal PA of 1 to 2. 2) Independent/supervision with wheelchair mobility 100 feet plus. 3) Supervision to independent with bed mobility. 4) Improve sitting balance to Fair level (sitting without support). Occupational Therapy Goals: 1. Pt will be Ind with feeding self after set up. 2. Pt will be Ind with bed mobility and transfers from EOB to chair/commode. Prognosis - Prognosis Moderate Plan - Plan Physical Therapy Plan: PT once daily for bed mobility, transfer training, wheelchair mobility and sitting balance exercises. Occupational Therapy Plan: OT 2-4 times daily to address UE function, functional mobility, self care activities. Recommend cont OT in an IP Rehab setting to maximize his level of Ind/safety.
[2016-09-18] MEDS: METOPROLOL TART 25 MG TABLET PO SCH (10:22)
[2016-09-18] MEDS: DOXAZOSIN MESYLATE 2 MG TABLET PO SCH (10:22)
[2016-09-18] MEDS: DOCUSATE SODIUM 100 MG CAPSULE PO SCH (10:24)
[2016-09-18] MEDS: POLYETHYLENE GLY 17 GM PACKET PO SCH (10:25)
[2016-09-18] MEDS: ASPIRIN 325 MG TAB ENTERIC-COATED PO SCH (10:25)
[2016-09-18] MEDS: FUROSEMIDE 20 MG TABLET PO SCH (10:25)
[2016-09-18] MEDS: ENOXAPARIN 30 MG/0.3 ML SYR SQ SCH (10:25)
[2016-09-18] MEDS: AMLODIPINE BESYLATE 5MG TAB PO SCH (10:26)
[2016-09-18] MEDS: BRIMONIDINE OPTH SCH (10:26)
[2016-09-18] MEDS: EZETIMIBE 10 MG TABLET PO SCH (10:27)
[2016-09-18] MEDS: DORZOLAMIDE OPTH SCH (10:27)
[2016-09-18] MEDS: TIMOLOL EYE OPTH SCH (10:27)
[2016-09-18] MEDS: CILOSTAZOL 50 MG PO SCH (10:30)
--- NOTE | 2016-09-18 13:46 | Discharge Summary ---
DATE OF DISCHARGE: 09/18/2016. DISCHARGE DIAGNOSES: 1. Right lower lobe pneumonia. 2. Urinary tract infection. 3. Dementia. 4. Elevated troponin-I, indeterminate range, secondary to renal insufficiency. 5. Peripheral artery disease. 6. Hypertension. 7. Coronary artery disease. 8. Chronic back pain. 9. Renal insufficiency. ATTENDING PHYSICIAN: Yasir Avila D.O. REASON FOR HOSPITALIZATION: Cough, congestion, wheezing, and chest pain at [facility]. HISTORY OF THE PRESENT ILLNESS: This is an 81-year-old male who has had dementia for five years and became a resident at [facility] for this reason. He was complaining to the staff that he thought he had chest pain and was having a heart attack. The staff called an ambulance. When he came to the emergency department he did not have any chest pain and no shortness of breath. However, he was objectively short of breath when watching him, and he was coughing. He had a fever. Chest x-ray revealed right lower lobe pneumonia. The patient was admitted to the hospital for intravenous antibiotics. His troponin was slightly elevated in an indeterminate range. This was initially thought to be secondary to renal insufficiency. His EKG showed no acute changes except for premature ventricular contractions. Normal sinus rhythm. Chest x-ray showed the right lower lobe infiltrate. SIGNIFICANT FINDINGS FROM EXAMINATION: LABORATORY DATA: White blood cell count was 12,800, hemoglobin was 12.3. Segs were 66. Lymphs were 12. Monos were 20. The last set of electrolytes showed the potassium was 4.0. BUN was 139. Chloride was 99. BUN was 26. Creatinine was 1.7. GFR was 41. Glucose was 103. Troponin I at three time points showed CKMB normal, but the troponin I in the indeterminate range. Urinalysis did show 10 to 15 white blood cells, 3+ bacteria. However, he is incontinent of urine and stool. DIAGNOSTIC DATA: EKG showed no acute changes with premature ventricular contractions. Chest x-ray revealed right lower lobe infiltrate. CONSULTATION: He had a consultation with Dr. Stefano Lucero. He felt the elevated troponins were because of pneumonia as well as renal insufficiency. He agreed with management of volume with aggressive antibiotic therapy. No need to keep the patient on anticoagulation with Heparin. The patient has a mild to moderate aortic stenosis. He is to follow up with Dr. Crouch, who is his primary set builder, as an outpatient. THERAPY PROVIDED: The patient was initially placed on Rocephin 1.0 gm intravenous and azithromycin 500 mg q. daily. When the urine culture showed 100 ,000 E. Coli, we switched him over to Levaquin 500 mg q. daily. We will send him home with Levaquin 500 mg q. daily for seven more days. DISCHARGE INSTRUCTIONS: The patient will be discharged to either [facility] or to a hospital for behavioral medicine or to our swing bed program according to Social Service's evaluation. The patient is to follow up with Dr. Medina in two weeks or either the hospital for behavioral medicine doctor or the [facility] physician who is following him. Dr. Medina may be following him at [facility]; I am not sure. Activity with assistance. The patient is currently standing and pivoting with two-person standby on the commode. I believe he did walk to the chair yesterday, and so I am concerned about the Restoril. He got that last night and that made him weaker. He is also getting Remeron at night, and so I feel that he should just have the Remeron at night and not the Restoril. Also no tramadol was given for pain during this hospitalization. I have recommended that he stop the tramadol and only use Tylenol for pain. DISCHARGE MEDICATIONS: 1. Levaquin 500 mg q. daily for seven days. 2. Tylenol 500 mg q. six hours p.r.n. pain. 3. Ventolin two puffs q. four hours p.r.n. 4. Lopressor 12.5 mg b.i.d. 5. Cardura 5.0 mg q. h.s. 6. Colace 100 mg b.i.d. 7. Lasix 20 mg q. daily. 8. Aspirin 81 mg q. daily. 9. MiraLAX 17 gm q. daily. 10. Amlodipine 5.0 mg q. daily. 11. Alphagan one drop in each eye b.i.d. 12. Cilostazol 50 mg b.i.d. 13. Dorzolamide one drop in each eye b.i.d. 14. Zetia 10 mg q. daily. 15. Remeron 15 mg at h.s. Discontinue the Restoril. Discontinue tramadol. 16. Xalatan 0.005% one drop at h.s. in each eye. 17. Protonix 40 mg q. daily. Yasir Avila D.O. Date Time JOB NUMBER: [id number] cc: Veronica Castro
== END 2016-09-18 15:15 | DRG 194 ==
LOC: ER 21:05 → MEDSURG 09-15 00:25
PROVIDERS: ADMIT Emergency Medicine; ATTEND Emergency Medicine
DX: J18.9 Pneumonia, unspecified organism (principal); N39.0 Urinary tract infection, site not specified; B96.20 Unspecified Escherichia coli [E. coli] as the cause of diseases classified elsewhere; R79.89 Other specified abnormal findings of blood chemistry; F03.90 Unspecified dementia, unspecified severity, without behavioral disturbance, psychotic disturbance, mood disturbance, and anxiety; E78.5 Hyperlipidemia, unspecified; I73.9 Peripheral vascular disease, unspecified; I10 Essential (primary) hypertension; K21.9 Gastro-esophageal reflux disease without esophagitis; I25.10 Atherosclerotic heart disease of native coronary artery without angina pectoris; Z85.46 Personal history of malignant neoplasm of prostate; M54.9 Dorsalgia, unspecified; N28.9 Disorder of kidney and ureter, unspecified
CPT/HCPCS: 71020; 80048; 80053; 81001; 82550; 82553; 83880; 84484; 85027; 93005; 93010; 93041; 93306; 94761; 96365; 97110; 97166; 97530; 99223; 99233; 99239; 99285; J1650

== ENCOUNTER 2017-01-17 07:13 | Emergency (ER) | payer MEDICARE, BC ==
[2017-01-17 07:44] LABS: BASO % 0.6 % (0-6); EOS % 5.8 % (0-6); GRAN % 61.9 % (47-80); HEMATOCRIT 44.1 % (42.0-52.0); HEMOGLOBIN 14.1 gm/dl (14.0-18.0); LYMPH % 19.7 % (16-45); MEAN CELL VOLUME 88.9 fl (81-97); MEAN CORPUSCULAR HEMOGLOBIN 28.4 pg (27-33); MEAN PLATELET VOLUME 10.2 fl (7.4-10.4); PLATELET COUNT 203 K/uL (130-400); RED BLOOD COUNT 4.96 M/uL (4.40-5.70); RED CELL DISTRIBUTION WIDTH 14.5 % (11.5-14.5); WHITE BLOOD COUNT W/O DIFF 7.3 K/uL (4.2-12.2)
--- NOTE | 2017-01-17 07:47 | Emergency Department Record ---
History of Present Illness - General Chief Complaint: Fall Injury Stated Complaint: SLID OFF WHEELCHAIR Time Seen by Provider: 01/17/17 07:24 Source: Patient, EMS Mode of Arrival: EMS Limitations: No limitations - History of Present Illness Initial Comments: The patient is here from [facility] due to possibly sliding out of his wheelchair this AM. The staff found him sitting next to the wheelchair but the patient denies falling. He states he got down on the floor to push the chair and look out into the hallway. He denies falling or injuring himself in any way. The patient also denies any recent illnesses, pain, fever, vomiting, CP, SOB, or AP. He does have a hx of mild dementia. MD Complaint: Other -: Unknown Fall From: Chair When Fall Occurred: Unsure Fall Witnessed: No Place Fall Occurred: prison[facility]SNF Loss of Consciousness: Unsure Prolonged Down Time?: No Associated Symptoms: Denies - [place] Coma Scale Eye Response: (4) Open spontaneously Motor Response: (6) Obeys commands Verbal Response: (5) Oriented Corina Total: 15 - Related Data Home Medications Medication Instructions Recorded Confirmed Last Taken Albuterol Sulfate [Proair Hfa] 1 - 2 puff IH .EVERY 4-6 HOURS PRN 11/25/1401/17 1 Day Ago ~01/16/17 Amlodipine Besylate [Norvasc] 5 mg PO DAILY 11/25/14 01/17/17 1 Day Ago ~01/16/17 Aspirin [Aspirin EC] 81 mg PO DAILY 11/25/14 01/17/17 1 Day Ago ~01/16/17 Brimonidine Tartrate [Alphagan P] 5 ml OP BID 11/25/14 01/17/17 1 Day Ago ~01/16/17 Cilostazol [Pletal] 50 mg PO BID 11/25/14 01/17/17 1 Day Ago ~01/16/17 Docusate Sodium [Colace] 100 mg PO BID 11/25/14 01/17/17 1 Day Ago ~01/16/17 Dorzolamide HCl/Timolol Maleat 5 ml OP BID 11/25/14 01/17/17 1 Day Ago [Cosopt Eye Drops] ~01/16/17 Ezetimibe [Zetia] 10 mg PO DAILY 11/25/14 01/17/17 1 Day Ago ~01/16/17 Latanoprost [Xalatan] 1 drop OP QHS 11/25/14 01/17/17 1 Day Ago ~01/16/17 Mirtazapine 15 mg PO QHS 11/25/14 01/17/17 1 Day Ago ~01/16/17 Furosemide [Lasix] 20 mg PO QAM 03/04/15 01/17/17 1 Day Ago ~01/16/17 Metoprolol Tartrate [Lopressor] 12.5 mg PO Q12H 06/30/15 01/17/17 1 Day Ago ~01/16/17 Polyethylene Glycol 3350 [Miralax] 17 gm PO DAILY 09/13/16 01/17/17 1 Day Ago ~01/16/17 Acetaminophen [Mapap] 500 mg PO QID PRN 01/17/17 01/17/17 1 Day Ago ~01/16/17 Benzonatate [Tessalon] 1 cap PO Q6H PRN 01/17/17 01/17/17 1 Day Ago ~01/16/17 Cholecalciferol (Vitamin D3) 2,000 unit PO DAILY 01/17/17 01/17/17 1 Day Ago [Vitamin D3] ~01/16/17 Guaifenesin [Mucinex] 600 mg PO BID 01/17/17 01/17/17 1 Day Ago ~01/16/17 Ibuprofen [Motrin 400Mg] 400 mg PO Q8H PRN 01/17/17 01/17/17 1 Day Ago ~01/16/17 Ketoconazole 30 gm TP TID PRN 01/17/17 01/17/17 1 Day Ago ~01/16/17 L. Acidophilus/L.bulgaricus 4 each PO DAILY 01/17/17 01/17/17 1 Day Ago [Lactinex Chewable Tablet] ~01/16/17 Loperamide HCl [Loperamide] 2 mg PO BID PRN 01/17/17 01/17/17 1 Day Ago ~01/16/17 Omeprazole 20 mg PO DAILY 01/17/17 01/17/17 1 Day Ago ~01/16/17 Oxymetazoline HCl [Nasal 1 spray NS QID 01/17/17 01/17/17 1 Day Ago Decongestant] ~01/16/17 Tramadol HCl [Ultram] 50 mg PO Q6H PRN 01/17/17 01/17/17 1 Day Ago ~01/16/17 Tramadol HCl [Ultram] 100 mg PO QHS 01/17/17 01/17/17 1 Day Ago ~01/16/17 Vit C/Vit E/Lutein/Min/[place]-3 1 each PO BID 01/17/17 01/17/17 1 Day Ago [Ocuvite Softgel] ~01/16/17 Previous Rx's Medication Instructions Recorded Doxazosin Mesylate [Cardura] 4 mg PO DAILY #0 09/18/16 Zinc Oxide [Desitin] 28.35 gm TOP ASDIR PRN #0 tube 09/18/16 Allergies Allergy/AdvReac Type Severity Reaction Status Date / Time acetazolamide Allergy Severe BEHAVIORAL Verified 01/17/17 07:23 [From Diamox Sequels] CHANGES atenolol [From Tenormin] Allergy Severe BEHAVIORAL Verified 01/17/17 07:23 CHANGES hydrocodone bitartrate Allergy Severe BEHAVIORAL Verified 01/17/17 07:23 CHANGES quetiapine fumarate Allergy Severe BEHAVIORAL Verified 01/17/17 07:23 [From Seroquel] CHANGES fluticasone propionate Allergy Intermediate HYPERSENSIT Verified 01/17/17 07:23 [From Flonase] IVITY rofecoxib Allergy Intermediate HYPERSENSIT Verified 01/17/17 07:23 IVITY adhesive Allergy HYPERSENSIT Verified 01/17/17 07:23 IVITY fentanyl [From Duragesic] Allergy HYPERSENSIT Verified 01/17/17 07:23 IVITY Travel Screening - Travel/Exposure Within Last 30 Days Have you traveled within the last 30 days?: No Review of Systems Constitutional: Denies: Chills, Fever Eyes: Denies: Eye discharge ENT: Denies: Congestion Respiratory: Denies: Cough, Dyspnea Cardiovascular: Denies: Chest pain Endocrine: Denies: Fatigue Gastrointestinal: Denies: Abdominal pain Genitourinary: Denies: Dysuria Musculoskeletal: Denies: Back pain Past Medical History - SOCIAL HISTORY Smoking Status: Never smoker Alcohol Use: None Drug Use: None - RESPIRATORY Hx Respiratory Disorders: Yes Hx Asthma: Yes (uses inhaler) Hx Pneumonia: Yes - CARDIOVASCULAR Hx Cardio Disorders: Yes Hx Abnormal EKG: Yes Hx Cardiac Cath: Yes Hx Heart Attack: Yes Hx Hypertension: Yes - NEURO Hx Neuro Disorders: Yes Hx Dementia: Yes - GI Hx GI Disorders: Yes Hx Diverticulitis: Yes Hx Reflux: Yes Comment:: colitis - Hx Genitourinary Disorders: Yes Hx Prostate Problems: Yes Comment:: prostate CA 1989' - ENDOCRINE Hx Endocrine Disorders: No - MUSCULOSKELETAL Hx Musculoskeletal Disorders: Yes Hx Arthritis: Yes Comment:: mult back surg - PSYCH Hx Psych Problems: Yes Hx Depression: Yes - HEMATOLOGY/ONCOLOGY Hx Hematology/Oncology Disorders: Yes Hx Cancer: Yes (prostate) Hx Chemotherapy: No Hx Radiation Therapy: No Family Medical History Any Significant Family History?: Yes Hx Cancer: Father Hx Heart Disease: Father, Mother, Children Hx HTN: Mother, Brother/Sister Hx Stroke: Grandparents Physical Exam - General General Appearance: Alert (The patient is oriented to name, place, age, Bday but not to the day, month or year.), Cooperative, No acute distress - Head Head exam: Atraumatic, Normocephalic, Normal inspection (There are no signs of trauma.) - Eye Eye exam: Normal appearance, PERRL - Neck Neck exam: Normal inspection, Full ROM. negative: Tenderness - Respiratory Respiratory exam: Normal lung sounds bilaterally. negative: Respiratory distress - Cardiovascular Cardiovascular Exam: Regular rate, Normal rhythm, Normal heart sounds - GI/Abdominal GI/Abdominal exam: Soft, Normal bowel sounds. negative: Tenderness - Extremities Extremities exam: Normal inspection, Full ROM, Normal capillary refill. negative: Tenderness - Neurological Neurological exam: Alert. negative: Motor sensory deficit, Oriented X3 (The patient is oriented x 2 but not to date.) - Psychiatric Psychiatric exam: negative: Anxious, Depressed Course Vital Signs 01/17/17 07:16 Temperature 98.5 F Pulse Rate 71 Respiratory 18 Rate Blood Pressure 108/74 Pulse Ox 97 - Reevaluation(s) Reevaluation #1: The patient is doing very well at this time. He denies any problems or issues and would like to go home. 01/17/17 09:03 Medical Decision Making - Lab Data Result diagrams: 01/17/17 07:35 01/17/17 07:35 Disposition Disposition: Discharge Clinical Impression: Weakness Disposition: Home, Self-Care Condition: (1) Good Instructions: Fall Prevention for Older Adults (ED) Additional Instructions: Please be careful when up in your wheelchair. Please see your PCP for any problems. Forms: Patient Portal Access Time of Disposition: 09:04 Quality - Quality Measures Quality Measures: N/A - Blood Pressure Screening View Details: Yes Blood Pressure Classification: Normal BP Reading Systolic Measurement: 108 Diastolic Measurement: 74 Screening for High Blood Pressure: < Normal BP, F/U Not Required > [G8783] Normal BP Follow-up Interventions: No follow-up required
[2017-01-17 07:56] LABS: ALB/GLOB RATIO 1.4 (1.1-1.8); ANION GAP 10.6 (7-16); BILIRUBIN,TOTAL 0.55 mg/dL (0.2-1.3); CARBON DIOXIDE 28.4 mmol/L (22-30); CREATININE 1.7 mg/dL (0.66-1.25); TOTAL PROTEIN 6.9 gm/dL (6.3-8.2)
== END 2017-01-17 09:42 | disposition home or self-care (01) ==
LOC: ER 07:13
DX: R53.1 Weakness (principal); F03.90 Unspecified dementia, unspecified severity, without behavioral disturbance, psychotic disturbance, mood disturbance, and anxiety; I10 Essential (primary) hypertension; I25.2 Old myocardial infarction
CPT/HCPCS: 80053; 85025; 99283

== ENCOUNTER 2017-02-03 09:46 | Emergency (ER) | payer MEDICARE, BC ==
--- NOTE | 2017-02-03 10:16 | Emergency Department Record ---
History of Present Illness - General Chief Complaint: Abdominal Pain Stated Complaint: ABD PAIN Time Seen by Provider: 02/03/17 10:06 Source: Patient, RN notes reviewed Mode of Arrival: EMS - History of Present Illness Initial Comments: bilateral lower abd pain started 24 hours ago ,No vomiting ,Last BM 3 hours ago and no change in pain. No diarrhea and he ate breakfast today and no change in the pain. 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 Patient lives at [facility] and not on memory side. oriented times three and memory reasonable for age. He has lived at [facility] 3-4 years. Son Kerwin and daughter in the area( Anneliese Sanchez). His medical chart states he has dementia. Anneliese here and he has a history of diverticulitis. MD Complaint: Abdominal pain Onset/Timin -: Hour(s) Location: Epigastric Radiation: None Severity: Moderate Quality: Cramping Consistency: Constant Improves With: Nothing Worsens With: Nothing Associated Symptoms: Denies other symptoms - Related Data Home Medications Medication Instructions Recorded Confirmed Last Taken Albuterol Sulfate [Proair Hfa] 1 - 2 puff IH .EVERY 4-6 HOURS PRN 11/25/1402/03 1 Day Ago ~01/16/17 Amlodipine Besylate [Norvasc] 5 mg PO DAILY 11/25/14 02/03/17 1 Day Ago ~01/16/17 Aspirin [Aspirin EC] 81 mg PO DAILY 11/25/14 02/03/17 1 Day Ago ~01/16/17 Brimonidine Tartrate [Alphagan P] 5 ml OP BID 11/25/14 02/03/17 1 Day Ago ~01/16/17 Cilostazol [Pletal] 50 mg PO BID 11/25/14 02/03/17 1 Day Ago ~01/16/17 Docusate Sodium [Colace] 100 mg PO BID 11/25/14 02/03/17 1 Day Ago ~01/16/17 Dorzolamide HCl/Timolol Maleat 5 ml OP BID 11/25/14 02/03/17 1 Day Ago [Cosopt Eye Drops] ~01/16/17 Ezetimibe [Zetia] 10 mg PO DAILY 11/25/14 02/03/17 1 Day Ago ~01/16/17 Latanoprost [Xalatan] 1 drop OP QHS 11/25/14 02/03/17 1 Day Ago ~01/16/17 Mirtazapine 15 mg PO QHS 11/25/14 02/03/17 1 Day Ago ~01/16/17 Furosemide [Lasix] 20 mg PO QAM 03/04/15 02/03/17 1 Day Ago ~01/16/17 Metoprolol Tartrate [Lopressor] 12.5 mg PO Q12H 06/30/15 02/03/17 1 Day Ago ~01/16/17 Polyethylene Glycol 3350 [Miralax] 17 gm PO DAILY 09/13/16 02/03/17 1 Day Ago ~01/16/17 Acetaminophen [Mapap] 500 mg PO QID PRN 01/17/17 02/03/17 1 Day Ago ~01/16/17 Benzonatate [Tessalon] 1 cap PO Q6H PRN 01/17/17 02/03/17 1 Day Ago ~01/16/17 Cholecalciferol (Vitamin D3) 2,000 unit PO DAILY 01/17/17 02/03/17 1 Day Ago [Vitamin D3] ~01/16/17 Guaifenesin [Mucinex] 600 mg PO BID 01/17/17 02/03/17 1 Day Ago ~01/16/17 Ibuprofen [Motrin 400Mg] 400 mg PO Q8H PRN 01/17/17 02/03/17 1 Day Ago ~01/16/17 Ketoconazole 30 gm TP TID PRN 01/17/17 02/03/17 1 Day Ago ~01/16/17 L. Acidophilus/L.bulgaricus 4 each PO DAILY 01/17/17 02/03/17 1 Day Ago [Lactinex Chewable Tablet] ~01/16/17 Loperamide HCl [Loperamide] 2 mg PO BID PRN 01/17/17 02/03/17 1 Day Ago ~01/16/17 Omeprazole 20 mg PO DAILY 01/17/17 02/03/17 1 Day Ago ~01/16/17 Oxymetazoline HCl [Nasal 1 spray NS QID 01/17/17 02/03/17 1 Day Ago Decongestant] ~01/16/17 Tramadol HCl [Ultram] 50 mg PO Q6H PRN 01/17/17 02/03/17 1 Day Ago ~01/16/17 Vit C/Vit E/Lutein/Min/[place]-3 1 each PO BID 01/17/17 02/03/17 1 Day Ago [Ocuvite Softgel] ~01/16/17 Previous Rx's Medication Instructions Recorded Zinc Oxide [Desitin] 28.35 gm TOP ASDIR PRN #0 tube 09/18/16 Amoxicillin/Potassium Clav 1 each PO TID #30 tablet 02/03/17 [Augmentin 500-125 Tablet] Allergies Allergy/AdvReac Type Severity Reaction Status Date / Time acetazolamide Allergy Severe BEHAVIORAL Verified 02/03/17 09:58 [From Diamox Sequels] CHANGES atenolol [From Tenormin] Allergy Severe BEHAVIORAL Verified 02/03/17 09:58 CHANGES hydrocodone bitartrate Allergy Severe BEHAVIORAL Verified 02/03/17 09:58 CHANGES quetiapine fumarate Allergy Severe BEHAVIORAL Verified 02/03/17 09:58 [From Seroquel] CHANGES fluticasone propionate Allergy Intermediate HYPERSENSIT Verified 02/03/17 09:58 [From Flonase] IVITY rofecoxib Allergy Intermediate HYPERSENSIT Verified 02/03/17 09:58 IVITY adhesive Allergy HYPERSENSIT Verified 02/03/17 09:58 IVITY fentanyl [From Duragesic] Allergy HYPERSENSIT Verified 02/03/17 09:58 IVITY Travel Screening - Travel/Exposure Within Last 30 Days Have you traveled within the last 30 days?: No - Travel/Exposure Within Last Year Have you traveled outside the [place] in the last year?: No - Additonal Travel Details Have you been exposed to anyone with a communicable illness?: No - Travel Symptoms Symptom Screening: None Review of Systems Reviewed: No additional complaints except as noted below Constitutional: Reports: As per HPI. Denies: Chills, Fever, Malaise, Night sweats, Weakness, Weight change Eyes: Reports: As per HPI. Denies: Eye discharge, Eye pain, Photophobia, Vision change ENT: Reports: As per HPI. Denies: Congestion, Dental pain, Ear pain, Epistaxis , Hearing loss, Throat pain Respiratory: Reports: As per HPI. Denies: Cough, Dyspnea, Hemoptysis, Stridor, Wheezes Cardiovascular: Reports: As per HPI. Denies: Arrhythmia, Chest pain, Dyspnea on exertion, Edema, Murmurs, Orthopnea, Palpitations, Paroxysmal nocturnal dyspnea, Rheumatic Fever, Syncope Endocrine: Reports: As per HPI. Denies: Fatigue, Heat or cold intolerance, Polydipsia, Polyuria Gastrointestinal: Reports: As per HPI, Abdominal pain. Denies: Constipation, Diarrhea, Hematemesis, Hematochezia, Melena, Nausea, Vomiting Genitourinary: Reports: As per HPI. Denies: Dysuria, Frequency, Hematuria, Incontinence, Retention, Testicular pain, Testicular mass, Urgency Musculoskeletal: Reports: As per HPI. Denies: Arthralgia, Back pain, Gout, Joint swelling, Myalgia, Neck pain Skin: Reports: As per HPI. Denies: Bruising, Change in color, Change in hair/ nails, Lesions, Pruritus, Rash Neurological: Reports: As per HPI. Denies: Abnormal gait, Confusion, Headache, Numbness, Paresthesias, Seizure, Tingling, Tremors, Vertigo, Weakness Psychiatric: Reports: As per HPI. Denies: Anxiety, Auditory hallucinations, Depression, Homicidal thoughts, Suicidal thoughts, Visual hallucinations Hematological/Lymphatic: Reports: As per HPI. Denies: Anemia, Blood Clots, Easy bleeding, Easy bruising, Swollen glands Past Medical History - SOCIAL HISTORY Smoking Status: Never smoker Alcohol Use: None Drug Use: None - RESPIRATORY Hx Respiratory Disorders: Yes Hx Asthma: Yes (uses inhaler) Hx Pneumonia: Yes - CARDIOVASCULAR Hx Cardio Disorders: Yes Hx Abnormal EKG: Yes Hx Cardiac Cath: Yes Hx Heart Attack: Yes Hx Hypertension: Yes - NEURO Hx Neuro Disorders: Yes Hx Dementia: Yes - GI Hx GI Disorders: Yes Hx Diverticulitis: Yes Hx Reflux: Yes Comment:: colitis - Hx Genitourinary Disorders: Yes Hx Prostate Problems: Yes Comment:: prostate CA - ENDOCRINE Hx Endocrine Disorders: No Hx Diabetes: No Hx Thyroid Disease: No - MUSCULOSKELETAL Hx Musculoskeletal Disorders: Yes Hx Arthritis: Yes Comment:: mult back surg - PSYCH Hx Psych Problems: Yes Hx Depression: Yes - HEMATOLOGY/ONCOLOGY Hx Hematology/Oncology Disorders: Yes Hx Cancer: Yes (prostate) Hx Chemotherapy: No Hx Radiation Therapy: No Family Medical History Any Significant Family History?: Yes Hx Cancer: Father Hx Heart Disease: Father, Mother, Children Hx HTN: Mother, Brother/Sister Hx Stroke: Grandparents Physical Exam - General General Appearance: Alert, Oriented x3, Cooperative, No acute distress - Head Head exam: Normal inspection - Eye Eye exam: Normal appearance, PERRL Pupils: Normal accommodation - ENT ENT exam: Normal exam, Mucous membranes moist, Normal external ear exam, Normal orophraynx, TM's normal bilaterally Ear exam: Normal external inspection. negative: External canal tenderness Nasal Exam: Normal inspection. negative: Discharge, Sinus tenderness Mouth exam: Normal external inspection, Tongue normal Teeth exam: Normal inspection. negative: Dental caries Throat exam: Normal inspection. negative: Tonsillar erythema, Tonsillar exudate - Neck Neck exam: Normal inspection, Full ROM. negative: Tenderness - Respiratory Respiratory exam: Normal lung sounds bilaterally. negative: Respiratory distress - Cardiovascular Cardiovascular Exam: Regular rate, Normal rhythm, Normal heart sounds - GI/Abdominal GI/Abdominal exam: Soft, Normal bowel sounds, Tenderness (bilateral lower abd pain). negative: Distended, Guarding, Mass, Pulsatile mass, Rebound, Rigid - Rectal Rectal exam: Deferred - exam: Deferred - Extremities Extremities exam: Normal inspection, Full ROM, Normal capillary refill. negative: Tenderness - Back Back exam: Reports: Normal inspection, Full ROM. Denies: Muscle spasm, Rash noted, Tenderness - Neurological Neurological exam: Alert, Normal gait, Oriented X3, Reflexes normal - Psychiatric Psychiatric exam: Normal affect, Normal mood - Skin Skin exam: Dry, Intact, Normal color, Warm Course Vital Signs 02/03/17 09:58 Temperature 97.6 F Pulse Rate 60 Respiratory 16 Rate Blood Pressure 150/68 Pulse Ox 94 L - Reevaluation(s) Reevaluation #1: patient is feeling better less abd pain and his daughter informed he was started on cefdnir twice aday and he has had three doses. Will stop this and go with augmentin to cover diverticulitis as well as upper respiratory problems. 02/03/17 12:27 Medical Decision Making - Data Complexity MDM Data: Labs Ordered and/or Reviewed, X-Ray Ordered and/or Reviewed (CT essentially neg) - Lab Data Result diagrams: 02/03/17 09:55 02/03/17 09:55 Disposition Clinical Impression: Abdominal pain Qualifiers: Abdominal location: lower abdomen, unspecified Qualified Code(s): R10.30 - Lower abdominal pain, unspecified Diverticulitis Qualifiers: Diverticulitis site: unspecified part of intestinal tract Diverticulitis bleeding: without bleeding Diverticulitis complication: without perforation or abscess Qualified Code(s): K57.92 - Diverticulitis of intestine, part unspecified, without perforation or abscess without bleeding Disposition: Home, Self-Care Condition: (1) Good Instructions: Diverticulitis (ED) Additional Instructions: follow up with family in one week tylenol 500 mg every 6 hour for pain PRN take augmentin 500 mg three times a day. stop cefdinir Prescriptions: Amoxicillin/Potassium Clav [Augmentin 500-125 Tablet] 1 each PO TID #30 tablet Forms: Patient Portal Access Time of Disposition: 12:24 Quality - Quality Measures Quality Measures: N/A - Blood Pressure Screening Blood Pressure Classification: Hypertensive Reading Systolic Measurement: 150 Diastolic Measurement: 68 Screening for High Blood Pressure: Not Eligible for Measure [[id number]] Not Eligible Reason: Active Diagnosis of Hypertension
[2017-02-03 10:39] LABS: HEMATOCRIT 42.8 % (42.0-52.0); HEMOGLOBIN 13.5 gm/dl (14.0-18.0); MEAN CORPUSCULAR HGB CONC 31.5 g/dl (32-36); MEAN PLATELET VOLUME 11.1 fl (7.4-10.4); PLATELET COUNT 213 K/uL (130-400); RED BLOOD COUNT 4.81 M/uL (4.40-5.70); RED CELL DISTRIBUTION WIDTH 14.4 % (11.5-14.5); WHITE BLOOD COUNT W/O DIFF 10.2 K/uL (4.2-12.2)
[2017-02-03 10:56] LABS: ALBUMIN 3.8 gm/dL (3.5-5.0); BILIRUBIN,TOTAL 0.75 mg/dL (0.2-1.3); CREATININE 1.8 mg/dL (0.66-1.25); TOTAL PROTEIN 6.6 gm/dL (6.3-8.2)
[2017-02-03] MEDS: ACETAMINOPHEN 325 MG TAB PO ONE (11:57)
[2017-02-03] MEDS ORDERED: 0.9 % SODIUM CHLORIDE 1000ML 1,000 ML IV ONE (12:07)
[2017-02-03] MEDS: ONDANSETRON 4 MG ODT TABLET SL ONE (12:15)
--- NOTE | 2017-02-04 09:33 | CT SCAN REPORT ---
EXAM: EMERGENCY CT OF THE ABDOMEN AND PELVIS WITHOUT CONTRAST HISTORY: BILATERAL LOWER QUADRANT PAIN. PRIOR APPENDECTOMY AND CHOLECYSTECTOMY. TECHNIQUE: Axial CT scan of the abdomen and pelvis was performed without oral or IV contrast. Comparison: CT of the abdomen and pelvis 09/13/16. FINDINGS: The gallbladder appears to be present despite the history of cholecystectomy and correlation with the specifics of the prior surgical history is suggested. The appendix is not clearly seen and is presumably surgically absent given the history. There is also extensive postop lumbar laminectomy and posterior fusion which creates considerable artifact through the involved length of the spine. The patient is also postop sternotomy. There are also numerous surgical clips in the pelvis probably from prior prostate resection. Again correlation with the surgical history is suggested. Coronary artery calcification is present. There is some minor streaky atelectasis or infiltrate in the right base. No calcified gallstones are seen in the gallbladder and no intrarenal calculi identified in either kidney. No hydronephrosis or hydroureter is seen with no definite ureteral calculus on either side and no bladder calculus evident. Evaluation of the bowel and viscera are very limited without oral or IV contrast. A couple small low attenuation foci in the liver, the largest about 11 mm in size again seen as before. No definite new hepatic or splenic mass evident with probably a couple small accessory spleens present near the inferior aspect of the spleen also present previously. No definite adrenal, pancreatic, or left renal mass. There is probably a low attenuation mass upper pole right kidney about 1.6 cm in size also present previously, incompletely evaluated without IV contrast. This may simply be a right renal cyst, but recommend correlation with prior work-up. Retroaortic as well as preaortic left renal vein, a developmental variant. Prominent diverticulosis left side of the colon particularly in the sigmoid, but no diverticulitis evident. No free intraperitoneal air or free intraperitoneal fluid evident. Degenerative disk disease at the T11-T12 interspace probably with a large Schmorl's node type defect along the superior end plate of the body of T12 also present previously. Some relative elevation of the right hemidiaphragm also present previously. Lower lumbar scoliosis convexed to the left. IMPRESSION: 1. POSTOP CHANGES INCLUDING APPARENT STERNOTOMY, EXTENSIVE LUMBAR POSTERIOR FUSION THROUGHOUT THE LUMBAR SPINE, PROSTATE RESECTION, AND PROBABLY APPENDECTOMY. PATIENT PROVIDES A HISTORY OF CHOLECYSTECTOMY WELL ALTHOUGH THE GALLBLADDER DOES APPEAR TO BE PRESENT. 2. CORONARY ARTERY CALCIFICATION. 3. A COUPLE SMALL LOW ATTENUATION FOCI IN THE LIVER UNCHANGED FROM BEFORE, PRESUMABLY CYSTS. THERE MAY ALSO BE ABOUT A 1.6 CM CYST IN THE UPPER POLE OF THE RIGHT KIDNEY. CORRELATION WITH ANY PRIOR CONFIRMATION IS SUGGESTED. 4. PROMINENT DIVERTICULOSIS OF THE SIGMOID COLON, BUT NO DIVERTICULITIS EVIDENT. 5. LOWER LUMBAR LEVOSCOLIOSIS. 6. NO URINARY TRACT CALCULI OR HYDRONEPHROSIS EVIDENT. NO FREE AIR OR FREE FLUID SEEN. JOB NUMBER: [id number] [facility]
== END 2017-02-03 13:20 | disposition home or self-care (01) ==
LOC: ER 09:46
DX: K57.92 Diverticulitis of intestine, part unspecified, without perforation or abscess without bleeding (principal); R10.13 Epigastric pain; I10 Essential (primary) hypertension; I25.2 Old myocardial infarction; F03.90 Unspecified dementia, unspecified severity, without behavioral disturbance, psychotic disturbance, mood disturbance, and anxiety
CPT/HCPCS: 74176; 80048; 80076; 83690; 85027; 99283; 99284